=== PATIENT | female | born 1975 | race Two or more races ===

== ENCOUNTER → 2021-01-15 | Outpatient (CLI) | payer BC ==
--- NOTE | 2021-01-15 10:56 | RAD ---
Abdominal ultrasound 01/15/2021 INDICATION: Epigastric pain and weight loss COMPARISON STUDY: None FINDINGS: Ultrasound evaluation of the abdomen was performed. Static images are submitted to PACS. Pa ncreas is partially visualized. Visualized portions of the pancreas are unremarkable. Visualized port ions of the aorta and IVC are unremarkable. The liver is normal in size measuring 14 cm longitudinall y. Hepatic echotexture is grossly normal. No intrahepatic biliary dilatation is seen. No focal hepati c lesion is seen. There is a 4 mm echogenic, round focus along the nondependent portion of the gallbl adder wall likely a cholesterol polyp. The bladder is otherwise unremarkable without evidence of wall thickening, cholelithiasis, or pericholecystic fluid. Common bile duct is within normal limits measu ring 5 mm in diameter. The right kidney is normal in appearance measuring 10.4 cm in length. Spleen i s unremarkable in appearance measuring 11 cm longitudinally. The left kidney measures 10.6 cm in laurie th and is otherwise unremarkable in appearance. IMPRESSION: 1. No sonographic evidence of acute intra-abdominal abnormality 2. 4 mm cholesterol polyp in the nondependent gallbladder wall Electronically signed by: Murphy Manuel MD (01/15/2021 10:54 AM) [id number]
== END ==
LOC: US 09:49
PROVIDERS: ATTEND Physician Assistant
DX: R10.13 Epigastric pain (principal); R63.4 Abnormal weight loss
CPT/HCPCS: 76700